=== PATIENT | male | born 1990 | race African-American/Black ===

== ENCOUNTER 2016-06-23 05:57 | Day surgery (SDC) | payer OTHER ==
[2016-06-23] MEDS ORDERED: ACETAMINOPHEN 1,000 MG/100 ML 100 ML IV ONE (06:22)
[2016-06-23] MEDS ORDERED: ceFAZolin 2 GM/50 ML 50 ML IV ONE (06:22)
[2016-06-23] MEDS ORDERED: LACTATED RINGERS 1,000 ML IV ONE ×2 (06:47→09:29)
[2016-06-23] MEDS ORDERED: fentaNYL 250 MCG/5 ML VIAL IVP ONE (08:17)
[2016-06-23] MEDS ORDERED: ONDANSETRON 4 MG/2 ML VIAL IVP ONE (08:17)
[2016-06-23] MEDS ORDERED: ROPIVACAINE 0.5% PF 20 ML AMPULE EP ONE (08:17)
[2016-06-23] MEDS ORDERED: DEXAMETHASONE 4 MG/ML VIAL IVP ONE (08:17)
[2016-06-23] MEDS ORDERED: PROPOFOL 200 MG/20 ML VIAL IVP ONE (08:17)
[2016-06-23] MEDS ORDERED: BUPIVACAINE 0.5% PF 30 ML VIAL SUBQ ONE ×2 (08:25→08:34)
[2016-06-23] MEDS ORDERED: ONDANSETRON 4 MG/2 ML VIAL ONE (09:07)
[2016-06-23] MEDS ORDERED: HYDROmorphone 1 MG/ML SYRINGE ONE (09:20)
[2016-06-23] MEDS ORDERED: oxyCOD/ACETAMIN 5 MG/325 MG TABLET PO ONE (10:04)
== END 2016-06-23 05:58 | disposition home or self-care (01) ==
PROC: 0KNS0ZZ Release Right Lower Leg Muscle, Open Approach (ICD-10-PCS; principal; 2016-06-23 07:30)
DX: M79.A21 Nontraumatic compartment syndrome of right lower extremity (principal)
CPT/HCPCS: 27600; A9270; J0131; J0690; J1170; J3010; J7120

== ENCOUNTER 2016-06-28 15:55 | Outpatient (CLI) | payer OTHER | END 2016-06-28 15:56 | disposition home or self-care (01) | DX: M67.962 Unspecified disorder of synovium and tendon, left lower leg (principal) ==

== ENCOUNTER 2016-08-10 12:47 | Emergency (ER) | payer OTHER ==
--- NOTE | 2016-08-10 13:41 | ED Physician Documentation ---
PD HPI WOUND RECHECK - Stated complaint Stated Complaint: R LEG PX/INCISION SITE DRAINING - Chief complaint Chief Complaint: Wound - Histroy obtained from History obtained from: Patient - History of Present Illness Location: Right Lower Extremity (lateral right lower leg at incision area. Had surgery for compartment syndrome in June, then with suture abscess and removal of that couple weeks ago. Having wound healing but then part opened and the patient says he got a small bit of unresorbed suture material out and skin is now red.) Associated symptoms: Redness, Drainage (clear mild). No: Fever, Swelling Recently seen: Clinic, Surgery Review of Systems Constitutional: denies: Fever, Chills GI: denies: Abdominal Pain, Nausea, Vomiting PD PAST MEDICAL HISTORY - Past Medical History Cardiovascular: None Respiratory: None Endocrine/Autoimmune: None GI: None : None HEENT: None Psych: None Musculoskeletal: Other Derm: None - Past Surgical History Past Surgical History: No - Present Medications Home Medications: Ambulatory Orders Medication Instructions Recorded Confirmed Cephalexin [Keflex] 500 mg PO QID #24 capsule 08/10/16 Methocarbamol [Robaxin] 500 mg PO Q6H PRN #25 tablet 08/10/16 Mupirocin 1 applic TP TID #15 oint...g. 08/10/16 Naproxen [Naprosyn] 500 mg PO BID PRN #20 tablet 08/10/16 - Allergies Allergies/Adverse Reactions: Allergies Allergy/AdvReac Type Severity Reaction Status Date / Time ibuprofen [From Motrin] Allergy Edema Verified 06/21/16 13:57 - Social History Does the pt smoke?: No Smoking Status: Never smoker Does the pt drink ETOH?: No Does the pt have substance abuse?: No - Immunizations Immunizations are current?: Yes PD ED PE NORMAL - Vitals Vital signs reviewed: Yes - General General: Alert and oriented X 3, No acute distress, Well developed/nourished - Derm Derm: Normal color, Warm and dry - Extremities Extremities: Other (right lower leg surgical site with small edge opening about 1/2 cm, no purulence, but slight clear draiange. ) Results - Vitals Vitals: Oxygen O2 Source Room air - Labs Labs: Microbiology 08/10/16 14:00 Wound Culture - Preliminary Leg - Right PD MEDICAL DECISION MAKING - ED course Complexity details: considered differential (some redness of skin around small dehiscence site. Culture of moist drainage.), d/w patient Departure - Departure Disposition: 01 Home, Self Care Clinical Impression: Wound infection after surgery Qualifiers: Encounter type: initial encounter Qualified Code(s): T81.4XXA - Infection following a procedure, initial encounter Condition: Stable Record reviewed to determine appropriate education?: Yes Instructions: ED Wound Infec After Surgery Follow-Up: Cal Hwang DO [Provider Admit Priv/Credential] - Prescriptions: Cephalexin [Keflex] 500 mg PO QID #24 capsule Mupirocin 1 applic TP TID #15 oint...g. Naproxen [Naprosyn] 500 mg PO BID PRN #20 tablet PRN Reason: Pain Methocarbamol [Robaxin] 500 mg PO Q6H PRN #25 tablet PRN Reason: Spasms Comments: Cleanse area twice daily with soap and water and apply mupirocin antibiotic ointment. Naproxen twice daily for a week for inflammation. Cephalexin as directed for infection. Methocarbamol as needed for muscle stiffness/spasms. Follow up . Discharge Date/Time: 08/10/16 14:35
[2016-08-10 14:02] VITALS: BP 117/64
[2016-08-10] MEDS ORDERED: MUPIROCIN 2% OINT 1 GM TOP STA (14:02)
[2016-08-10] MEDS ORDERED: METHOCARBAMOL 500 MG TABLET PO STA (14:02)
[2016-08-10] MEDS ORDERED: CEPHALEXIN 250 MG CAPSULE PO STA (14:02)
[2016-08-10] MEDS ORDERED: ACETAMINOPHEN 325 MG TABLET PO STA (14:03)
[2016-08-10] MEDS ORDERED: MUPIROCIN 2% OINT 1 GM ONE (14:13)
[2016-08-10] MEDS ORDERED: CEPHALEXIN 250 MG CAPSULE PO ONE (14:13)
[2016-08-10] MEDS ORDERED: ACETAMINOPHEN 325 MG TABLET PO ONE (14:14)
== END 2016-08-10 14:35 | disposition home or self-care (01) ==
LOC: ED 12:47
DX: T81.4XXA Infection following a procedure, initial encounter (principal)
CPT/HCPCS: 87070; 87205; 99282; 99283; A9270